=== PATIENT | male | born 1990 | race Caucasian/White ===

== ENCOUNTER 2017-02-08 10:00 | Emergency (ER) | payer BC, OTHER ==
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
[2017-02-08 10:56] VITALS: BP 119/61
== END 2017-02-08 11:24 | disposition home or self-care (01) ==
LOC: ER 10:00
DX: S16.1XXA Strain of muscle, fascia and tendon at neck level, initial encounter (principal); S40.012A Contusion of left shoulder, initial encounter; V85.0XXA Driver of special construction vehicle injured in traffic accident, initial encounter; Y92.488 Other paved roadways as the place of occurrence of the external cause; Y99.0 Civilian activity done for income or pay